=== PATIENT | female | born 1980 | race Caucasian/White ===

== ENCOUNTER 2022-09-15 10:16 | Day surgery (SDC) | payer OTHER, SELFPAY ==
[2022-09-14 08:14] VITALS: BMI 29.2
[2022-09-15] VITALS (7 sets, daily range): BP systolic 90–108; BP diastolic 41–59; PULSE 49–67; RESP 12–19; TEMP 36.4–36.9; O2SAT 98–100; BMI 29.2
[2022-09-15] MEDS: LACTATED RINGERS 1,000 ML 42 ML IV (11:13)
[2022-09-15 11:25] LABS: Blood Urea Nitrogen 13 mg/dL (7-17); C-Reactive Protein Quant < 0.5 mg/dL (<1.0); Calcium 9.3 mg/dL (8.4-10.2); Carbon Dioxide 25 mmol/L (22-32); Chloride 106 mmol/L (98-107); Estimated Glomerular Filt Rate > 60 mL/min (>60); Glucose 98 mg/dL (70-100); HEMOLYSIS < 15 (0-50); Potassium 3.8 mmol/L (3.4-5.1); Sodium 137 mmol/L (137-145)
[2022-09-15 11:48] LABS: Erythrocyte Sedimentation Rate 4 MM/HR (0-20)
[2022-09-15 11:51] LABS: Add Manual Diff / Slide Review NO; Basophils Absolute Auto 0 /uL (0-100); Basophils Percent Auto 0.5 % (0-2); Eosinophils Absolute Auto 100 /uL (0-450); Eosinophils Percent Auto 2.8 % (2-4); Hemoglobin 12.6 g/dL (12.0-16.0); Lymphocytes Absolute Auto 1700 /uL (1100-4500); Lymphocytes Percent Auto 35.8 % (25-40); Mean Corpuscular HGB Conc 34.8 % (30-36); Mean Corpuscular Hemoglobin 30.3 PG (26-34); Mean Corpuscular Volume 87.1 fL (80-100); Monocytes Absolute Auto 300 /uL (0-900); Monocytes Percent Auto 5.8 % (3-14); Neutrophils Absolute Auto 2700 /uL (1500-7000); Neutrophils Percent Auto 55.1 % (50-75); Platelet Count 208 X10^3/uL (150-400); Red Blood Cell Count 4.14 X10^6/uL (4.0-5.2); Red Cell Distribution Width 13.2 % (11.6-14.8); White Blood Cell Count 4.9 X10^3/uL (4.5-11.0)
[2022-09-15] MEDS: ACETAMINOPHEN 325 MG TABLET 975 MG PO (12:01)
--- NOTE | 2022-09-15 12:29 | PM.PREOP ---
Pre-operative Note Interval Note History & Physical reviewed/Exam performed by Physician: Yes Changes to H&P: No
--- NOTE | 2022-09-15 13:09 | SUR.OPER ---
Supine on padded OR bed, head on pillow, arms secured on padded arm boards at <90 degrees abduction, legs uncrossed, safety belt at thigh, tape over blanket over lower legs.
[2022-09-15] MEDS: BUPIVACAINE 0.25% (PF) 30 ML, EPINEPHrine 0.15 MG INJ (13:46)
[2022-09-15] MEDS: HYDROCODONE/ACET 5/325 TABLET 1 TAB PO (14:22)
--- NOTE | 2022-09-16 19:15 | P.OP_ITS ---
Operative Date/Time/Diagnoses Date of procedure: 09/15/22 Time of procedure: 12:00 Pre-op diagnosis: wound dehiscence surgical right foot Post-op diagnosis: same Procedure & Clinicians Procedure: excisional debridement right foot wound dehiscence Same procedure as scheduled: Yes Indications: 42 yo F s/p R midfoot fracture dislocation and ORIF with incision epidermolysis and dehiscence. she is indicated for excisonal debridement and closure right foot wound. The risks, benefits and alternatives were dicussed and informed consent signed. Surgeon: Lady Grady Click Yes if Unassisted: Yes Anesthesia Type: MAC +/- and Local Operative Notes Findings: 3cm dorsal midfoot incision with dehiscence and fibrinous exudate Closure Type: primary Specimen(s): other (culture swabs) Estimated Blood Loss (mL): 2 Blood products transfused: none Tourniquet time (min): 10 Procedure in detail: the patient was seen in the preop area and site of surgery was marked. the patient was brought to OR and positioned. Anesthesia was administered and the patient was positioned. an ankle tourniquet placed. the extremity was prepped and draped in the standard sterile fashion. a formal timeout procedure was performed confirming patient, site, side of surgery and preop antibiotics. the leg was elevated then tourniquet elevated. attention turned to right foot. the 3 cm x 0.5cm wound dehiscence and fibrinous tiisue was ellipsed out sh arply with a scalpel and removed including skin and subcutaneous tissue. there was no deep tracking or abscess or exposed hardware. the wound was irrigated with 1 L saline. then gloves and drapes were changed. deep cultures were taken, tourniquet was released and the incision was closed with 4-0 monocryl, 4-0 nylon. and a dry dressing with xerform, gauze, tegaderm placed. the patient was awoken from anesthesia and taken to recover in good condition. Complications: none Post-operative Condition: stable Disposition: PACU Plan for aftercare: protected WB in boot with arch support. keep incision dry. f/u 2 weeks.
== END 2022-09-15 14:58 | disposition home or self-care (01) ==
PROVIDERS: PCP Internal Medicine; Referring Provider Orthopaedic Surgery Foot and Ankle Surgery; Visit Provider Orthopaedic Surgery Foot and Ankle Surgery
PROC: (CPT 11042; principal; 2022-09-15 11:45)
DX: T81.32XA Disruption of internal operation (surgical) wound, not elsewhere classified, initial encounter (principal); L76.82 Other postprocedural complications of skin and subcutaneous tissue; Z98.890 Other specified postprocedural states
CPT/HCPCS: 11042; 36415; 80048; 85025; 85651; 86140; 87070; 87075; 87205; J0171; J0690; J2405; J2704; J3010